=== PATIENT | male | born 1975 | race Hispanic/Latino ===

== ENCOUNTER 2016-08-12 08:36 | Emergency (ER) | payer OTHER ==
[~2016-08-12] VITALS: Ht 165.1 cm; Wt 65.9 kg
[2016-08-12 08:42] VITALS: BP 140/90; RESP 14; O2SAT 100
--- NOTE | 2016-08-12 09:26 | ED.REPORT ---
HPI-Sore Throat ONLY HPI/PE done Aug 12, 2016 ED Provider: Doc,Ed MD Patient is a 40 year old male who presents to the ED complaining of a sore throat onset 2 days ago. Associated symptoms include pain that radiates up to his right ear and pain with swallowing. Patient reports he able to drink water. He denies vomiting. Nursing Notes Stated Complaint: SORE THROAT Chief Complaint: ENT & Mouth Nursing Notes Reviewed: Yes Allergies: Coded Allergies: No Known Allergies (Unverified , 08/12/16) Scheduled Amoxicillin/Clav K 875-125 mg (Augmentin 875-125 mg) 1 Each Tablet 1 TABLET PO BID Prednisone (PredniSONE) 50 Mg Tablet 50 MG PO DAILY Scheduled PRN Naproxen (Naproxen) 500 Mg Tab 500 MG PO BID PRN PRN For Pain General Time Seen by MD: 09:26 Chief Complaint Sore throat Hx Obtained From: Patient Arrived By: Walk-in Onset Occurred: 2 days ago Symptom Duration: Since onset Location: : Tonsil right Recent Healthcare: No recent doctor visit, No recent hospitalization Review of Systems Ears / Nose / Throat: Reports: Earache right, Sore throat Respiratory: Denies: Non-productive cough, Shortness of breath GI: Denies: Vomiting Complete sys rev & neg: except as marked. Physical Exam Initial Vital Signs Vital Signs (First) Date Time Temp Pulse Resp B/P Pulse Ox O2 Delivery O2 Flow Rate FiO2 08/12/16 08:42 36.6 69 14 140/90 100 Room Air Initial VS: Reviewed General/Constitutional: Awake, Alert ENT: Atraumatic, Airway patent, Mucous membranes moist symmetric posterior tonsil erythema mild ulvua edema no submandibular swelling Neck: Atraumatic, Supple, Full range of motion, No adenopathy Head / Eyes: Atraumatic, Normocephalic, PERRL, EOMI Respiratory / Chest: Atraumatic, No respiratory distress Skin: Atraumatic, Color NL, No rash, Warm, Dry Neurologic: Oriented X3, Speech NL, No motor deficits, No sensory deficits Upper Extremity / MS: Atraumatic, Full range of motion Lower Extremity / Pelvis / MS: Atraumatic, Full range of motion Psychiatric: Affect NL, Mood NL Interpretation & Diagnostics X-Ray Interpretation Xray Interpretation: IMPRESSION: Overall, grossly unremarkable examination Dictated by: Jak García M.D. on 08/12/2016 at 10:17 Approved by: Jak García M.D. on 08/12/2016 at 10:30 X-Ray Ordered: Neck Interpretation / Wet Read by: Interpret - Radiologist Re-Eval/Medical Decision Med Decision/Clinical Course Findings of mild uvular edema and erythema as well as posterior pharyngeal erythema without obvious deep space abscess or infection. Lateral neck is performed to exclude any deep space abscess. Vital signs are normal his exam is otherwise reassuring. Symptoms have improved after Toradol and dexamethasone. Will plan to discharge on prednisone, naproxen, Augmentin. Overall I do not think this represents life-threatening bacterial infection however Augmentin is given on the off chance this could be bacterial. Return and follow-up precautions given. Re-Evaluation/Progress : Time of Eval: 10:38 Patient Status: Condition improved Re-Evaluation/Progress Note: Discussed results and plan for discharge. The patient understands and agrees to the plan for discharge. All questions were addressed. Counseled Regarding: Diagnosis, Lab results, Need for follow-up, When/why to return to ED Discharge & Departure Primary Impression: Uvulitis Disposition: Home Discharge Condition All VS Reviewed: Yes Condition: Stable Additional Instructions: Thank you for trusting us with your care. You were seen today for a sore throat Take prednisone, naproxen and augmentin as prescribed. You should follow up with your primary care physician or an ear nose and throat doctor in the next few days. Please return to the emergency department if you develop any new or worsening symptoms including fever, vomiting, chest pain, shortness of breath, in ability to swallow, numbness, weakness or tingling. Erica por confiar en nosotros para klein cuidado mdico. Le vimos hoy para dolor de garganta. Quique prednisone, naproxen, y augmentin, karla recetado. Debe shravan a klein doctor de cabecera o un especialista Otorrinolaringlogo dentro de unos wilde para karen carter de seguimiento. Por favor, regresar a la [facility] Emergencia si tiene sintomas nuevas o que empeoren, incluyendo fiebre, vmito, dolor de pecho, falta de aire, inabilidad de tragar, entumecimiento, debilidad u hormigeo. Referrals: Kylie Bautista MD (PCP) Scribe Attestation Portions of this note were transcribed by Elizabeth Thomas. I, Dr. Bishop Dunlap personally performed the history, physical exam and medical decision-making; I reviewed and confirmed the accuracy of the information in the transcribed note. Signed by: Kely Villalba, 08/12/16 and [id number] copies to: Kylie Bautista MD, Timothy S DO Aug 12, 2016 09:26 Kay Thomas Aug 12, 2016 09:30
--- NOTE | 2016-08-12 10:32 | DRSVH ---
PROCEDURE: X-RAY NECK SOFT TISSUE ([id number]) INDICATIONS: sore throat TECHNIQUE: 2 views of the neck were acquired. COMPARISON: None. FINDINGS: Airway: The airway appears patent. Soft tissues: Prevertebral soft tissues are normal in thickness. The epiglottis and aryepiglottic f olds appear normal. No soft tissue gas. No definite subglottic narrowing Bones: No suspicious bony lesions. Visualized cervical spine is normally aligned. Straightening of the normal cervical lordosis IMPRESSION: Overall, grossly unremarkable examination Dictated by: Jak García M.D. on 08/12/2016 at 10:17 Approved by: Jak García M.D. on 08/12/2016 at 10:30
[2016-08-12] MEDS ORDERED: PRED50TA PO (10:52)
[2016-08-12] MEDS ORDERED: NPR500T PO (10:52)
[2016-08-12] MEDS ORDERED: AMOX-366 PO (10:52)
[2016-08-12 11:06] VITALS: BP 131/91; PULSE 59; RESP 16; O2SAT 98
== END 2016-08-12 11:06 | disposition home or self-care (01) ==
LOC: SED 08:36
DX: K12.2 Cellulitis and abscess of mouth (principal)
CPT/HCPCS: 70360; 87880; 96372; 99284; J1885